=== PATIENT | female | born 1955 | race Two or more races ===

== ENCOUNTER 2022-02-18 20:08 | Emergency (ER) | payer MEDICARE, BC ==
[~2022-02-18] VITALS: Ht 160 cm; Wt 58.5 kg
[2022-02-18 20:57] LABS: Basophils # (auto) 0 10 ^3/uL (0-0.2); Basophils % (auto) 0.4 % (0.0-2.0); Eosinophils # (auto) 0.1 10 ^3/uL (0-0.8); Eosinophils % (auto) 1.7 % (0.0-7.0); Hematocrit 40.3 % (36.0-46.0); Hemoglobin 13.8 g/dL (12.2-16.2); Lymphocytes # (auto) 1.5 10 ^3/uL (0.4-5.4); Lymphocytes % (auto) 20.1 % (10.0-50.0); Mean Corpuscular Hemoglobin 30.1 pg (28.0-32.0); Mean Corpuscular Hgb Conc. 34.1 g/dL (32.0-36.0); Mean Corpuscular Volume 88.1 fL (80.0-100.0); Monocytes # (auto) 0.4 10 ^3/uL (0-1.3); Monocytes % (auto) 4.9 % (0.0-12.0); Neutrophils # (auto) 5.5 10 ^3/uL (1.6-8.6); Neutrophils % (auto) 72.9 % (37.0-80.0); Nucleated Red Blood Cells % 0.1 %; Red Blood Cells 4.58 10^6/uL (4.0-5.20); Red Cell Distribution Width 14.7 % (11.8-14.3); White Blood Cell 7.5 10^3/uL (4.4-10.8)
[2022-02-18 21:14] LABS: Calcium 8.7 mg/dL (8.5-10.1); Potassium 4.1 mmol/L (3.5-5.1)
[2022-02-18 21:18] LABS: BUN/Creatinine Ratio 22.2; Bilirubin, Total 0.7 mg/dL (0.2-1.0); Total Protein 7.2 g/dL (6.4-8.2)
[2022-02-18] MEDS ORDERED: IOHEXOL 300 MG/ML 100ML BOTTLE IJ ONE (21:56)
[2022-02-18 23:42] LABS: Urine Bacteria NONE SEEN /hpf (None Seen); Urine Blood 3+ /uL (Negative); Urine Hyaline Cast FEW /lpf (0 - 2); Urine Mucus FEW (None Seen); Urine Specific Gravity 1.045 (1.001-1.035); Urine WBC 6 /hpf (0 - 5)
[2022-02-19] MEDS ORDERED: PSYL0.5223 PO (00:21)
[2022-02-19 04:05] VITALS: BP 122/74
== END 2022-02-19 04:02 | disposition home or self-care (01) ==
LOC: ER 20:08
DX: K59.00 Constipation, unspecified (principal)
CPT/HCPCS: 36415; 71045; 74018; 74177; 80053; 81001; 84484; 85025; 99285; Q9967

== ENCOUNTER 2025-03-30 09:34 | Emergency (ER) | payer MEDICARE, BC ==
[~2025-03-30] VITALS: Ht 160 cm; Wt 61.0 kg
[~2025-03-30 09:34] MED LIST: PSYL0.5223 PO
--- NOTE | 2025-03-30 09:52 | ECG ---
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
--- NOTE | 2025-03-30 10:07 | ED.PDOC ---
History of Present Illness(SKN HPI Comments This is a 69 year old female presenting to the ED with chief complaint of chest pain/rash. Patient reports that she has been experiencing left sided chest wall pain for the past 2 days where a rash has appeared. Patient relays that she has associated lightheadedness with her pain. Patient notes that she is currently on Macrobid for a recent UTI, which is when her symptoms of chest pain started. Patient denies any N/V, SOB, dizziness, headache, fever, or chills. Chief Complaint: Chest Pain Time Seen by MD: 10:04 History of Present Illness: Nurses Notes, Medications, Allergies Allergies: Coded Allergies: NO KNOWN ALLERGIES (Unverified , 03/30/25) Home Meds Active Scripts Psyllium (Psyllium Fiber) 0.52 Gm Cap, 0.52 GM PO DAILY PRN for 5 Days, #5 CAP Prov:SHERLY MATIAS MD 02/19/22 Information Source: Patient Mode of Arrival: Ambulatory Severity: Moderate Timing: Days Duration: Since onset Prehospital treatment: None Location: Chest Mechanism: Spontaneous Onset Developed: Rash Object: None Condition of Object: None Retained Foreign Body: No Wound Type: Unknown Immunization Status of Animal: NA Tetanus: Unknown Past Medical History PAST MEDICAL HISTORY: Cancer Surgical History (Other): Bilateral mastectomy 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 Pertinent OFFICE SERVICE 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 History Family History Family History: Reviewed,noncontributory to illness, No family hx of Cancer, No family hx of DM, No family hx of Heart clement, No family hx of HTN, No family hx ofKidney clement, No family hx of Liver clement, No family hx of Lung clement, No family hx of Stroke Social History Smoker: Non-Smoker Alcohol: Denies ETOH Use Drugs: Denies Drug Use Lives In: Home Constitutional: denies: chills, diaphoresis, fatigue, fever, malaise, sweats, weakness, others EENTM: denies: blurred vision, double vision, ear bleeding, ear discharge, ear drainage, ear pain, ear ringing, eye pain, eye redness, hearing loss, mouth pain, mouth swelling, nasal discharge, nose bleeding, nose congestion, nose pain, photophobia, tearing, throat pain, throat swelling, voice changes, others Respiratory: denies: cough, hemoptysis, orthopnea, SOB at rest, shortness of breath, SOB with excertion, stridor, wheezing, others Cardiovascular: reports: lightheadedness; denies: chest pain, dizzy spells, diaphoresis, Dyspnea on exertion, edema, irregular heart beat, left arm pain, palpitations, PND, syncope, others Gastrointestinal: denies: abdomen distended, abdominal pain, blood streaked bowels, constipated, diarrhea, dysphagia, difficulty swallowing, hematemesis, melena, nausea, poor appetite, poor fluid intake, rectal bleeding, rectal pain, vomiting, others Genitourinary: denies: abnormal vagina bleeding, burning, dyspareunia, dysuria, flank pain, frequency, hematuria, incontinence, pain, , vagina discharge, urgency, others Neurological: denies: dizziness, fainting, headache, left sided numbness, left sided weakness, numbness, paresthesia, pre-existing deficit, right sided numbness, right sided weakness, seizure, speech problems, tingling, tremors, weakness, others Musculoskeletal: denies: back pain, gout, joint pain, joint swelling, muscle pain, muscle stiffness, neck pain, others Integumetry: reports: rash (To left chest wall); denies: bruises, change in color, change in hair/nails, dryness, laceration, lesions, lumps, wounds, others Allergic/Immunocompromised: denies: Difficulty Healing, Frequent Infections, Hives, Itching, others Hematologic/Lymphatic: denies: anemia, blood clots, easy bleeding, easy bruising, swollen glands, others Endocrine: denies: excessive hunger, excessive sweating, excessive thirst, excessive urination, flushing, intolerance to cold, intolerance to heat, unexplained weight gain, unexplained weight loss, others Psychiatric: denies: anxiety, bipolar disorder, depression, hopeless, panic disorder, schizophrenia, sleepless, suicidal, others All Other Systems: Reviewed and Negative Physical Exam General Appearance: No Apparent Distress, Normal HEENT: Normal ENT Inspection, Pharynx Normal, TMs Normal Neck: Full Range of Motion, Non-Tender, Normal, Normal Inspection Respiratory: Chest Non-Tender, Lungs Clear, No Accessory Muscle Use, No Respiratory Distress, Normal Breath Sounds Cardiovascular: No Edema, No JVD, No Murmur, No Gallop, Normal Peripheral Pulses, Regular Rate/Rhythm Breast Exam: Deferred Gastrointestinal: No Organomegaly, Non Tender, No Pulsatile Mass, Normal Bowel Sounds, Soft Genitalia: Deferred Pelvic: Deferred Rectal: Deferred Extremities: No calf tenderness, Normal capillary refill, Normal inspection, Normal range of motion, Non-tender, No pedal edema Musculoskeletal : Apperance: Normal Neurologic: Alert, capacity planning manager II-XII nml as Tested, No Motor Deficits, Normal Affect, Normal Mood, No Sensory Deficits Cerebellar Function: Normal Reflexes: Normal Skin: Dry, Other (Dermatomal vesicular rash to left chest wall) Lymphatic: No Adenopathy Was a procedure done? Was a procedure done?: No Differential Diagnosis (INTG) Differential Diagnosis: Cellulitis, Contusion, Hematoma, Other (Shingles) Differential Diagnosis: N/A Differential Diagnosis: N/A Abscess: N/A Differential Diagnosis: N/A X-Ray, Labs, Meds, VS Vital Signs Date Time Temp Pulse Resp B/P (MAP) Pulse Ox O2 Delivery O2 Flow Rate FiO2 03/30/25 10:22 72 12 96 Room Air 03/30/25 10:22 98.4 72 16 115/71 (86) 96 98.4 03/30/25 10:21 98.4 03/30/25 09:51 74 03/30/25 09:40 98.5 76 17 132/71 (91) 96 98.5 03/30/25 09:40 Room Air* 0 21 Current Medications Medications (Trade) Dose Ordered Sig/Galen Route Start Time Stop Time Status Last Admin Acetaminophen (Tylenol Tablet) 650 mg ONCE ONCE PO 03/30/25 10:15 03/30/25 10:16 DC 03/30/25 10:21 Acyclovir (Zovirax Tablet) 800 mg ONCE ONCE PO 03/30/25 10:15 03/30/25 10:16 DC 03/30/25 10:20 Prednisone 40 mg ONCE ONCE PO 03/30/25 10:15 03/30/25 10:16 DC 03/30/25 10:21 Chest XR: FINDINGS: Lines and tubes: None Cardiomediastinal silhouette: normal Pulmonary vasculature: normal Lung expansion: normal Lung airspace: normal Lung interstitium: normal Pleura: normal Pneumothorax: no Bones: Left humerus hardware is present. Other: no IMPRESSION: No acute intrathoracic abnormality. Time of 1ST Reevaluation: 11:03 Reevaluation 1ST: Unchanged Patient Education/Counseling: Diagnosis, Treatment Family Education/Counseling: Diagnosis, Treatment Additional Information Previous visits reviewed: 02/18/22 for abdominal pain The following tests were ordered, and results were reviewed by me: Chest XR, Troponin Additional Information was gathered from interviewing the following independent historians: None I reviewed and agreed with the following test results read by other providers: Chest XR I discussed treatment and results with medical personnel and: patient Comprehensive systems review obtained and negative except for what is stated in the HPI. SEPSIS Sepsis Screen Date sepsis recognized/suspect: Mar 30, 2025 Time Sepsis recognized/suspect: 939 Recent Procedure: No On Antibiotic Therapy: Yes (Macrobid) Respiratory Rate >20: No Heart Rate >90: No Temp<36 C (96.8 F) or >38.3 C: No SBP <90 or MAP <65 mmHG: No New Acute Mental Status Change: No Is the patient on CPAP, BIPAP,: No Physician Orders Chest Two Views Routine (03/30/25 10:02) Vital Signs Date Time Temp Pulse Resp B/P (MAP) Pulse Ox O2 Delivery O2 Flow Rate FiO2 03/30/25 10:22 72 12 96 Room Air 03/30/25 10:22 98.4 72 16 115/71 (86) 96 98.4 03/30/25 10:21 98.4 03/30/25 09:51 74 03/30/25 09:40 98.5 76 17 132/71 (91) 96 98.5 03/30/25 09:40 Room Air* 0 21 Medications Medications Dose Ordered Sig/Galen Route Start Time Stop Time Status Last Admin Dose Admin Acetaminophen 650 mg ONCE ONCE PO 03/30/25 10:15 03/30/25 10:16 DC 03/30/25 10:21 Acyclovir 800 mg ONCE ONCE PO 03/30/25 10:15 03/30/25 10:16 DC 03/30/25 10:20 Prednisone 40 mg ONCE ONCE PO 03/30/25 10:15 03/30/25 10:16 DC 03/30/25 10:21 Departure 1 Departure Time of Disposition: 11:05 (In my judgment patient appears to have shingles. Patient's x-rays unchanged from prior. We will discharge patient home with outpatient follow up) Impression: Primary Impression: Shingles Qualified Codes: B02.9 - Zoster without complications Additional Impression: Left-sided chest wall pain Disposition: HOME / SELF CARE / HOMELESS Condition: Stable Additional Instructions: Your chest x-ray was benign. You likely have shingles. This is reactivation of the chicken pox virus. You were prescribed antiviral medications. You were prescribed gabapentin for nerve pain. You were prescribed lidocaine patches for pain. Please take as directed. For pain you can take the followinam: Ibuprofen 400mg with food Noon: Acetaminophen 1000mg 4pm: Ibuprofen 400mg with food 8pm: Acetaminophen 1000mg You should follow up with your regular doctor within one week to ensure you are doing better. If your symptoms worsen or you have any other concerns then please return to the ER. e-Prescriptions Lidocaine (LIDODERM 5% TOPICAL PATCH) 1 Patch Ph 1 PATCH TOP DAILY for 7 Days, #30 PATCH 1 Refill Prov: WILFREDO PINO MD 03/30/25 Gabapentin (Gabapentin) 300 Mg Cap 1 CAP PO TID PRN for 7 Days, #90 CAP 5 Refills Prov: WILFREDO PINO MD 03/30/25 Valacyclovir Hcl (Valtrex) 1 Gm Tab 1 TAB PO TID for 7 Days, #21 TAB Prov: WILFREDO PINO MD 03/30/25 Discharged With: Self Critical Care Note Critical Care Time?: No Stability Stability form required: No Heart Score Heart Score: Heart Score Response (Comments) Value History Slightly Suspicious 0 EKG Normal 0 Age >65 2 Risk Factors 1 or 2 risk factors 1 Troponin Normal limit 0 Total 3 I personally scribed for WILFREDO PINO MD ([email or web address]) on 03/30/25 at 10:07. Electronically submitted by Lopez Nolen ([email or web address]). I personally scribed for WILFREDO PINO MD ([email or web address]) on 03/30/25 at 10:47. Electronically submitted by Lopez Nolen ([email or web address]). WILFREDO PINO MD Mar 30, 2025 10:07
[2025-03-30] MEDS: ACYCLOVIR 400 MG TAB PO ONE (10:20)
[2025-03-30] MEDS: ACETAMINOPHEN 325 MG TAB PO ONE (10:21)
[2025-03-30] MEDS: predniSONE 20 MG TAB PO ONE (10:21)
--- NOTE | 2025-03-30 10:33 | DVH ---
XY CHEST TWO VIEWS ROUTINE, HISTORY: left sided chest pain COMPARISON: None None TECHNICAL DATA: 2 view of the chest was obtained. FINDINGS: Lines and tubes: None Cardiomediastinal silhouette: normal Pulmonary vasculature: normal Lung expansion: normal Lung airspace: normal Lung interstitium: normal Pleura: normal Pneumothorax: no Bones: Left humerus hardware is present. Other: no IMPRESSION: No acute intrathoracic abnormality.
[2025-03-30] MEDS ORDERED: GABA-1250 PO (11:08)
[2025-03-30] MEDS ORDERED: VALA1TAB PO (11:08)
[2025-03-30] MEDS ORDERED: LIDO5DIS21 TOP (11:08)
[2025-03-30 11:28] VITALS: BP 113/69; PULSE 66; RESP 15; TEMP 97.9; O2SAT 96
== END 2025-03-30 11:29 | disposition home or self-care (01) ==
LOC: ER 09:34
DX: B02.9 Zoster without complications (principal); R07.89 Other chest pain; Z87.440 Personal history of urinary (tract) infections
CPT/HCPCS: 71046; 93005; 99284; J7512

== ENCOUNTER 2025-07-21 00:29 | Emergency (ER) | payer MEDICARE, BC ==
[~2025-07-21] VITALS: Ht 160 cm; Wt 61.3 kg
[~2025-07-21 00:29] MED LIST changes: +GABA-1250 PO; +LIDO5DIS21 TOP; +VALA1TAB PO
[2025-07-21 02:05] LABS: Urine Protein, UAD Negative (Negative)
--- NOTE | 2025-07-21 02:14 | ED.PDOC ---
General HPI Comments PT CAME TO THE ER WITH C C OF POSSIBLE UTI, PT REPORTS PAIN DURING URINATION, WITH LESS URINE OUTPUT THEN NORMAL. PT IS A&OX4 RR EVEN AND REGULAR NO DISTRESS NOTED AT THIS TIME. PT DENIES N/V/D CP SOB, ABDOMINAL, FLANK, OR BACK PAIN NOTES NO WEAKNESS DIFFICULTY BREATHING. Chief Complaint: Urinary Time Seen by MD: 00:43 Reviewed notes: Nurses Notes, Medications, Allergies Allergies: Coded Allergies: NO KNOWN ALLERGIES (Unverified , 03/30/25) Home Meds Active Scripts Lidocaine (LIDODERM 5% TOPICAL PATCH) 1 Patch Ph, 1 PATCH TOP DAILY for 7 Days, #30 PATCH 1 Refill Prov:WILFREDO PINO MD 03/30/25 Gabapentin (Gabapentin) 300 Mg Cap, 1 CAP PO TID PRN for 7 Days, #90 CAP 5 Refills Prov:WILFREDO PINO MD 03/30/25 Valacyclovir Hcl (Valtrex) 1 Gm Tab, 1 TAB PO TID for 7 Days, #21 TAB Prov:WILFREDO PINO MD 03/30/25 Psyllium (Psyllium Fiber) 0.52 Gm Cap, 0.52 GM PO DAILY PRN for 5 Days, #5 CAP Prov:SHERLY MATIAS MD 02/19/22 Information Source: Patient Mode of Arrival: Ambulatory Past Medical History PAST MEDICAL HISTORY: Cancer 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 Family History Family History: Reviewed,noncontributory to illness, No family hx of Cancer, No family hx of DM, No family hx of Heart clement, No family hx of HTN, No family hx ofKidney clement, No family hx of Liver clement, No family hx of Lung clement, No family hx of Stroke Social History Smoker: Non-Smoker Alcohol: Denies ETOH Use Drugs: Denies Drug Use Lives In: Home All Other Systems: Reviewed and Negative (SEE HPI) Physical Exam General Appearance: No Apparent Distress, Normal HEENT: Pharynx Normal Neck: Full Range of Motion, Non-Tender Respiratory: Lungs Clear, No Respiratory Distress, Normal Breath Sounds Cardiovascular: No Edema, No JVD, No Murmur, Normal Peripheral Pulses, Regular Rate/Rhythm Breast Exam: Deferred Gastrointestinal: No Organomegaly, Non Tender, No Pulsatile Mass, Normal Bowel Sounds, Soft, Other (NEGATIVE CVA TENDERNESS) Genitalia: Deferred Pelvic: Deferred Rectal: Deferred Extremities: Normal capillary refill, Normal range of motion, No pedal edema Musculoskeletal : Apperance: Normal Neurologic: Alert, No Motor Deficits, Normal Affect, Normal Mood, No Sensory Deficits Cerebellar Function: Normal Reflexes: NOT DONE Skin: Dry, Normal Color, Warm Lymphatic: No Adenopathy Was a procedure done? Was a procedure done?: No Differential Diagnosis Kidney stone (Female): Pyelonephritis, Strain, Urinary obstruction, Urolithiasis Urinary Problem (Female): Urinary retention, UTI X-Ray, Labs, Meds, VS Vital Signs Date Time Temp Pulse Resp B/P (MAP) Pulse Ox O2 Delivery O2 Flow Rate FiO2 07/21/25 00:34 97.3 84 18 123/85 95 97.3 Lab Test 07/21/25 00:43 Range/Units Urine Color Colorless Yellow Urine Clarity Clear Clear Urine pH 5.0 5.0-9.0 Urine Specific [place] 1.003 1.001-1.035 Urine Protein Negative Negative Urine Ketones Negative Negative Urine Blood 3+ H Negative /uL Urine Nitrite Negative Negative Urine Bilirubin Negative Negative Urine Urobilinogen Normal Negative mg/dL Urine Leukocyte Esterase 3+ Negative /uL Urine RBC 2 0 - 4 /hpf Urine Microscopic WBC 53 H 0-5 /HPF Urine Squamous Epithelial Cells None seen <5 /hpf Urine Bacteria Few H None Seen /hpf Urine Glucose Normal Normal mg/dL X-Ray, Labs, Meds, VS Comment UA POSITIVE FOR INFECTION. PATIENT GIVEN ROCEPHIN 1 G IM. REQUESTING DISCHARGE AT THIS TIME. WE WILL TREAT OUTPATIENT SCRIPT TRIAL OF ANTIBIOTICS ADVISED TO TAKE MEDICATION PRESCRIBED SIDE EFFECTS DISCUSSED. ADVISED TO REST INCREASE P.O. FLUIDS WITH ELECTROLYTES. ADVISED TO AVOID CAFFEINE PRODUCTS. TYLENOL OR MOTRIN [id number] NEEDED FOR PAIN OR FEVER PER LABELED DOSING INSTRUCTIONS. FOLLOW UP WITH YOUR PCP IN 2-3 DAYS NECESSARY CONSIDER REPEAT URINE CULTURE SYMPTOMS PERSIST. ER RETURN PRECAUTIONS GIVEN PATIENT INDICATES UNDERSTANDING AND AGREES WITH DISCHARGE PLAN OF CARE. Time of 1ST Reevaluation: 00:43 Reevaluation 1ST: Unchanged Time of 2ND Reevaluation: 02:14 Reevaluation 2ND: Improved Patient Education/Counseling: Diagnosis, Treatment, Need For Follow Up Family Education/Counseling: No Family Present SEPSIS Sepsis Screen Date sepsis recognized/suspect: Jul 21, 2025 Time Sepsis recognized/suspect: 003 Recent Procedure: No On Antibiotic Therapy: Yes Respiratory Rate >20: No Heart Rate >90: No Temp<36 C (96.8 F) or >38.3 C: No SBP <90 or MAP <65 mmHG: No New Acute Mental Status Change: No Is the patient on CPAP, BIPAP,: No Vital Signs Date Time Temp Pulse Resp B/P (MAP) Pulse Ox O2 Delivery O2 Flow Rate FiO2 07/21/25 00:34 97.3 84 18 123/85 95 97.3 Departure 1 Departure Time of Disposition: 02:14 Impression: Primary Impression: Acute cystitis with hematuria Disposition: 01 HOME / SELF CARE / HOMELESS Condition: Stable Discharged With: Self Critical Care Note Critical Care Time?: No Stability Stability form required: CATRACHO Vivas Jul 21, 2025 02:14
[2025-07-21] MEDS ORDERED: BACDST PO (02:21)
[2025-07-21 02:30] VITALS: BP 124/78; PULSE 76; RESP 18; TEMP 97.7; O2SAT 97
[2025-07-21] MEDS: cefTRIAXone SOD 1,000 MG VL IM ONE (02:30)
== END 2025-07-21 02:45 | disposition home or self-care (01) ==
LOC: ER 00:31
DX: N30.01 Acute cystitis with hematuria (principal); Z79.624 Long term (current) use of inhibitors of nucleotide synthesis; Z79.899 Other long term (current) drug therapy
CPT/HCPCS: 81001; 96372; 99283; J0696